=== PATIENT | female | born 1990 | race Caucasian/White ===

== ENCOUNTER 2018-05-28 11:49 | Inpatient (IN) | payer OTHER ==
[2018-05-28 12:49] LABS: ADD MAN DIFF? NO
[2018-05-28 12:51] LABS: BASOPHILS % 0.3 % (0.0-2.0); EOSINOPHILS # 0.1 10^3/ul (0.0-0.5); EOSINOPHILS % 0.6 % (0.0-7.0); HEMATOCRIT 32.6 % (37.0-47.0); HEMOGLOBIN 10.5 g/dl (12.0-16.0); LYMPHOCYTES # 2.4 10^3/ul (0.8-2.9); LYMPHOCYTES % 19.6 % (15.0-51.0); MEAN CORPUSCULAR HEMOGLOBIN 25.7 pg (29.0-33.0); MEAN CORPUSCULAR HGB CONC 32.2 g/dl (32.0-37.0); MEAN CORPUSCULAR VOLUME 79.7 fl (82.0-101.0); MEAN PLATELET VOLUME 12.1 fl (7.4-10.4); MONOCYTE # 0.5 10^3/ul (0.3-0.9); MONOCYTES % 4.1 % (0.0-11.0); PLATELET COUNT 193 10^3/UL (140-415); RED BLOOD COUNT 4.09 10^6/ul (4.20-5.40); RED CELL DISTRIBUTION WIDTH 15.9 % (11.5-14.5)
[2018-05-28] MEDS ORDERED: MISOPROSTOL 200 MCG TAB PR ×2 (13:00→16:30)
[2018-05-28] MEDS ORDERED: OXYTOCIN 30 UNITS/LR 500 ML IV ×3 (13:00→16:30)
[2018-05-28] MEDS ORDERED: CARBOPROST 250 MCG INJ IM ×2 (13:00→16:30)
[2018-05-28] MEDS ORDERED: CEFAZOLIN 2 GM/50 ML (PMX) 50 ML IV ×2 (13:00→16:30)
[2018-05-28] MEDS ORDERED: METHYLERGONOVINE 0.2 MG INJ IM ×2 (13:00→16:30)
[2018-05-28 13:11] LABS: INR 0.91; PROTIME 12.3 Sec (11.9-14.9)
[2018-05-28 13:12] LABS: PARTIAL THROMBOPLASTIN TIME 27.9 Sec (23.0-35.0)
[2018-05-28] MEDS: LACTATED RINGER'S 1,000 ML IV ×4 (13:13→14:54)
[2018-05-28 13:45] LABS: HEPATITIS B SURFACE ANTIGEN NEGATIVE (NEGATIVE)
[2018-05-28] MEDS: FAMOTIDINE 20 MG INJ IV (14:42)
[2018-05-28] MEDS: ONDANSETRON 4 MG INJ IV (14:45)
[2018-05-28] MEDS: METOCLOPRAMIDE 10 MG INJ IV (14:47)
[2018-05-28] MEDS ORDERED: OXYTOCIN 10 UNIT INJ (15:04)
[2018-05-28] MEDS ORDERED: morphine SULFATE/PF (10 MG/10 ML) INJ (15:04)
[2018-05-28] MEDS ORDERED: BUPIVACAINE 0.75%/DEXT (SPINAL) 2 ML INJ (15:05)
[2018-05-28] MEDS ORDERED: ONDANSETRON 4 MG INJ IV ×2 (15:30)
[2018-05-28] MEDS ORDERED: HYDROmorphONE 0.5 MG/0.5 ML SYG IV ×2 (15:30)
[2018-05-28] MEDS ORDERED: FENTAnyl 50 MCG/ML VIAL IV ×2 (15:30)
[2018-05-28] MEDS ORDERED: NALOXONE (0.4 MG/ML) INJ IV (15:30)
[2018-05-28] MEDS ORDERED: DIPHENHYDRAMINE 50 MG INJ IV (15:30)
[2018-05-28] MEDS ORDERED: IPRATROPIUM (NEB) 0.5 MG/2.5 ML AMP HHN (15:30)
[2018-05-28] MEDS ORDERED: ZOLPIDEM 5 MG TAB PO (15:30)
[2018-05-28] MEDS ORDERED: HYDROmorphONE 1 MG/5 ML IV SYRINGE IV ×3 (15:30)
[2018-05-28] MEDS: OXYTOCIN 30 UNITS/LR 500 ML IV (16:15)
[2018-05-28] MEDS ORDERED: LANOLIN 7 GM TUBE TOP (16:30)
[2018-05-28 16:31] LABS: RAPID PLASMA REAGIN NONREACTIVE (NR)
[2018-05-28] MEDS: ACCU-CHEK XX (19:35)
[2018-05-28] MEDS: KETOROLAC 30 MG INJ IV (20:04)
[2018-05-28] MEDS: SENNA/DOCUSATE NA (8.6MG/50MG) TAB PO (21:00)
[2018-05-28] MEDS: CEFAZOLIN 2 GM/50 ML (PMX) 50 ML IVPB (23:18)
[2018-05-29] MEDS: LACTATED RINGER'S 1,000 ML IV (05:35)
[2018-05-29] MEDS: DIPHENHYDRAMINE 50 MG INJ IV (08:00)
[2018-05-29] MEDS: CEFAZOLIN 2 GM/50 ML (PMX) 50 ML IVPB ×2 (08:00→14:49)
[2018-05-29] MEDS: ACCU-CHEK XX ×4 (08:12→20:50)
[2018-05-29 08:29] LABS: ADD MAN DIFF? NO
[2018-05-29 08:35] LABS: BASOPHILS % 0.2 % (0.0-2.0); EOSINOPHILS # 0.2 10^3/ul (0.0-0.5); EOSINOPHILS % 1.3 % (0.0-7.0); HEMATOCRIT 29.2 % (37.0-47.0); HEMOGLOBIN 9.3 g/dl (12.0-16.0); LYMPHOCYTES # 1.3 10^3/ul (0.8-2.9); LYMPHOCYTES % 11.3 % (15.0-51.0); MEAN CORPUSCULAR HEMOGLOBIN 25.3 pg (29.0-33.0); MEAN CORPUSCULAR HGB CONC 31.8 g/dl (32.0-37.0); MEAN CORPUSCULAR VOLUME 79.6 fl (82.0-101.0); MEAN PLATELET VOLUME 11.7 fl (7.4-10.4); MONOCYTE # 0.6 10^3/ul (0.3-0.9); MONOCYTES % 5.1 % (0.0-11.0); NEUTROPHIL # 9.1 10^3/ul (1.6-7.5); NEUTROPHILS % 81.7 % (39.0-77.0); PLATELET COUNT 151 10^3/UL (140-415); RED BLOOD COUNT 3.67 10^6/ul (4.20-5.40); RED CELL DISTRIBUTION WIDTH 15.9 % (11.5-14.5)
[2018-05-29 08:35] LABS: WHITE BLOOD COUNT 11.1 10^3/ul (4.8-10.8)
[2018-05-29] MEDS: SENNA/DOCUSATE NA (8.6MG/50MG) TAB PO ×2 (09:00→22:19)
[2018-05-29] MEDS: KETOROLAC 30 MG INJ IV (12:07)
[2018-05-29] MEDS: OXYCODONE/ACETAMINOPHEN (5/325) TAB PO ×2 (16:13→22:20)
[2018-05-29] MEDS: FERROUS SULFATE (EC) 325 MG TAB PO (22:19)
[2018-05-30] MEDS: OXYCODONE/ACETAMINOPHEN (5/325) TAB PO ×3 (04:43→18:38)
[2018-05-30] MEDS: ACCU-CHEK XX ×4 (07:56→21:36)
[2018-05-30] MEDS: FERROUS SULFATE (EC) 325 MG TAB PO ×2 (09:33→21:36)
[2018-05-30] MEDS: SENNA/DOCUSATE NA (8.6MG/50MG) TAB PO ×2 (09:33→21:36)
[2018-05-30] MEDS: IBUPROFEN 600 MG TAB PO (23:40)
[2018-05-31] MEDS: OXYCODONE/ACETAMINOPHEN (5/325) TAB PO (04:10)
[2018-05-31] MEDS: IBUPROFEN 600 MG TAB PO ×3 (06:04→12:39)
[2018-05-31] MEDS: ACCU-CHEK XX ×3 (07:30→14:35)
[2018-05-31] MEDS: SENNA/DOCUSATE NA (8.6MG/50MG) TAB PO (09:49)
[2018-05-31] MEDS: FERROUS SULFATE (EC) 325 MG TAB PO (09:49)
== END 2018-05-31 16:30 | disposition home or self-care (01) | DRG 785 ==
LOC: L-D 11:49 → PP1 20:41
PROVIDERS: Obstetrics & Gynecology
PROC: 0UB70ZZ Excision of Bilateral Fallopian Tubes, Open Approach (ICD-10-PCS; 2018-05-28 14:00)
DX: O24.420 Gestational diabetes mellitus in childbirth, diet controlled (principal); O34.211 Maternal care for low transverse scar from previous cesarean delivery; O90.81 Anemia of the puerperium; D64.9 Anemia, unspecified; Z3A.39 39 weeks gestation of pregnancy; Z37.0 Single live birth; Z30.2 Encounter for sterilization
CPT/HCPCS: 82962; 85025; 85610; 85730; 86592; 86850; 86900; 86901; 86920; 87340; 88302; 99464